=== PATIENT | female | born 1985 | race Caucasian/White ===

== ENCOUNTER 2018-02-23 17:47 | Emergency (ER) | payer OTHER ==
[2018-02-23] MEDS: KETOROLAC 60 MG/2 ML VIAL (J1885) IM (22:22)
[2018-02-23] MEDS: methylPREDNISolone INJ 125 MG/2 ML VIAL (J2930) IM (22:22)
[2018-02-23] MEDS: METHOCARBAMOL 750 MG TAB PO (22:22)
== END 2018-02-23 23:02 | disposition home or self-care (01) ==
LOC: M ED 17:47
DX: M54.17 Radiculopathy, lumbosacral region (principal); M54.41 Lumbago with sciatica, right side; M54.42 Lumbago with sciatica, left side; Z88.1 Allergy status to other antibiotic agents
CPT/HCPCS: J1885